=== PATIENT | female | born 1980 | race African-American/Black ===

== ENCOUNTER 2017-11-30 16:18 | Emergency (ER) | payer MEDICAID ==
[~2017-11-30] VITALS: Ht 149.9 cm; Wt 49.9 kg
[2017-11-30 16:18] VITALS: BP 127/88
[2017-11-30 16:51] LABS: BASOPHILS # (AUTO) 0.1 /CMM (0.0-0.2); BASOPHILS % (AUTO) 1.9 % (0.0-2.0); EOSINOPHILS % (AUTO) 1.7 % (0.0-6.0); HEMATOCRIT 26 % (33-45); HEMOGLOBIN 7.8 g/dL (11.5-14.8); LYMPHOCYTES % (AUTO) 32.8 % (20.0-44.0); MEAN CORPUSCULAR HEMOGLOBIN 20 PG (26.0-33.0); MEAN CORPUSCULAR HGB CONC 31 g/dl (31.0-36.0); MEAN CORPUSCULAR VOLUME 65 fL (82-100); MONOCYTES # (AUTO) 0.3 /CMM (0.1-1.30); MONOCYTES % (AUTO) 9.5 % (2.0-12.0); NEUTROPHILS # (AUTO) 1.5 /CMM (1.8-8.9); NEUTROPHILS % (AUTO) 54.1 % (43.0-81.0); PLATELET COUNT (AUTO) 518 /CMM (150-450); RDW COEFFICIENT OF VARIATION 17.4 (11.5-15.0); RED BLOOD CELL COUNT(AUTO) 3.93 MIL/uL (4.0-5.2); WHITE BLOOD COUNT (AUTO) 2.9 K/uL (4.3-11.0)
== END 2017-11-30 17:28 | disposition home or self-care (01) ==
LOC: ER 16:25
DX: D64.89 Other specified anemias (principal); Z60.2 Problems related to living alone
CPT/HCPCS: 36415; 84703; 85025; 99284; A4606; Z7610